=== PATIENT | male | born 1990 | race Caucasian/White ===

== ENCOUNTER 2019-02-24 16:37 | Emergency (ER) | payer MEDICARE, MEDICAID, SELFPAY ==
[2019-02-24 16:38] VITALS: BP 133/74; PULSE 74; RESP 18; TEMP 36.8; O2SAT 95; BMI 29.7
--- NOTE | 2019-02-24 17:01 | CT_ITS ---
STUDY: CT ABDOMEN AND PELVIS WITH CONTRAST REASON FOR EXAM: Male, 29 years old. Bulge at the umbilicus RADIATION DOSAGE (If Supplied By Facility): DLP = ( 1119.77 ) mGycm TECHNIQUE: Transaxial images were obtained from the dome of the diaphragm to the symphysis pubis without oral contrast. 100ML ml of Isovue 300 contrast was administered. Sagittal and coronal images were reconstructed. Individualized dose optimization techniques were used for this CT. COMPARISON: None. FINDINGS: The visualized lung bases are clear. The visualized portions of the heart and pericardium are within normal limits. There are no calcified gallstones present. The liver is within normal limits. There are no suspicious hepatic lesions. The spleen is normal in size. The pancreas is within normal limits. The adrenal glands are within normal limits. There are no obstructing renal stones. There is no hydronephrosis. There are no focal renal lesions. Normal visualized stomach. There is no bowel obstruction or inflammation. The appendix is normal. The aorta is normal in caliber. There is no abdominal or pelvic free air, free fluid, fluid collection or lymphadenopathy. There are no destructive osseous lesions. There is a small umbilical fat-containing hernia measuring approximately [address]/Abdomen/Pelvis W IV Cont ONLY IMPRESSION: No acute abdominal or pelvic pathology. Small fat-containing umbilical hernia measuring approximately 1 cm diameter. Electronically Signed: Aaron Tinajero, at 18:29 EDT Tel , Service support ,
--- NOTE | 2019-02-24 17:14 | ED.VISSUMM ---
- ER Visit Summary Date of Service: 02/24/19 Chief Complaint: Possible hernia History of Present Illness: The patient is a 29 M with a possible hernia. The patient was sitting watching TV when he noted a swelling to his umbilical area. Associated with some pain. No vomiting or other symptoms. He has a history of an inguinal hernia on the right that was repaired surgically 6 to 10 years ago, but no other abdominal surgeries. Physical Examination: Vital and vital signs unremarkable. Patient appears in no acute distress. Abdominal inspection is unremarkable except for some mild swelling localized to his umbilicus on the left side. There is some tenderness to the area and induration. No guarding or rebound. Skin appears unremarkable. Test Results: Labs and CT pending. Emergency Department Course and Treatment: This seems localized to the cutaneous tissue. I suspect it might be a cyst or abscess. I have lower suspicion for hernia. I am checking labs and imaging prior to any further procedures or care. CBC and BMP unremarkable. CT showed a 1 center meter fat-containing umbilical hernia. Based on his clinical signs and symptoms, I do not believe he has a strangulated or incarcerated hernia. When I palpated the area, I was unable to reduce it. I believe the patient is appropriate for outpatient follow-up. We did discuss risks of incarceration and strangulation. Patient will return if he has any issues, otherwise follow-up with Dr. Cornejo. Treatment Plan: As above Disposition: Discharge Impression: 1. Umbilical hernia This note was generated with [employer] dictation software. It may contain incorrect words, spelling, and punctuation that were not noted in review of the chart prior to signing ED Disposition - Plan for ED Patient: Referrals: NOT,DEFINED [NON-STAFF] -
[2019-02-24 17:32] LABS: Absolute Lymphocyte Count 2.51 X10^3/ul (0.83-4.51); Absolute Neutrophil Count 3.9 X10^3/uL (2.0-7.7); Basophil# 0.03 X10^3/uL; Basophil% 0.4 % (0-1); Eosinophil# 0.21 X10^3/uL; Hematocrit 46.7 % (40-54); Hemoglobin 16.3 g/dl (13.0-16.5); Lymphocyte # 2.51 X10^3/ul (4.0); Lymphocyte % 35.4 % (19-41); Mean Corp Hgb Conc 34.9 g/gl (32-36); Mean Corpuscular Hgb 31.2 pg (27.0-32.0); Mean Corpuscular Volume 89.5 fL (80-94); Mean Platelet Vol. 9.8 fl (6.2-12.0); Monocyte# 0.44 X10^3/uL; Monocyte% 6.2 % (0-10); Neutrophil # 3.88 X10^3/uL (2.7-7.7); Neutrophil % 54.6 % (47-70); Platelet Count 213 K/mm3 (150-450); RBC Distribution Width CV 12.9 % (11.6-14.6); RBC Distribution Width SD 41.5 fl (35.1-43.9); Red Blood Count 5.22 M/mm3 (4.6-6.2); White Blood Count 7.1 K/mm3 (4.4-11.0)
[2019-02-24 17:39] LABS: POSITIVE COUNT NO; POSITIVE DIFFERENTIAL NO; POSITIVE MORPHOLOGY NO
[2019-02-24 17:54] LABS: Anion Gap 7 (5-15); BUN 14 mg/dL (7-18); BUN/Creat Ratio 13.9 RATIO (10-20); Calcium,Total 8.8 mg/dL (8.5-10.1); Chloride 103 mmol/L (98-107); Creatinine, Serum 1.01 mg/dL (0.70-1.30); EST Glomerular Filtration Rate 92 mL/min (>60); Est Glom Filt Rate - Afr Amer 112 mL/min (>60); Estimated Creatinine Clearance 99.99 ml/min; Glucose 96 mg/dL (74-106); Potassium 3.7 mmol/L (3.5-5.1); Sodium Level 140 mmol/L (136-145)
--- NOTE | 2019-02-24 18:59 | ED.DEP ---
ED Disposition - Plan for ED Patient: Instructions: What Is a Hernia? Referrals: Mele Cornejo MD [STAFF PHYSICIAN] -
[2019-02-24] MEDS: Acetaminophen 500 MG Tablet 1000 MG PO (19:06)
[2019-02-24 19:15] VITALS: BP 136/78; PULSE 71; RESP 16; O2SAT 98
== END 2019-02-24 19:16 | disposition home or self-care (01) ==
PROVIDERS: Emergency Provider Emergency Medicine
DX: K42.9 Umbilical hernia without obstruction or gangrene (principal)
CPT/HCPCS: 74177; 80048; 85025; 99284; Q9967; A4216

== ENCOUNTER 2021-04-17 13:08 | Emergency (ER) | payer MEDICARE, MEDICAID, SELFPAY ==
[2021-04-17 13:09] VITALS: BP 141/86; PULSE 64; RESP 18; TEMP 36.6; O2SAT 98; BMI 32.8
--- NOTE | 2021-04-17 13:42 | EDS_ITS ---
HPI History of Present Illness Chief Complaint: Foreign Body Narrative Narrative: 31-year-old male presenting for evaluation of pain in side of his throat. He states that it feels like there is a splinter in his throat. He does not recall eating anything or having difficulty swallowing anything that would cause it to be irritated. He is able to tolerate his own secretions. He has no fever or chills. He does not feel as if his tonsils are swollen. He is not had fever, chills, shortness of breath. PFSH PFSH Home Medications loratadine [Claritin] 10 mg PO DAILY 02/24/19 [History Last Taken Unknown] amoxicillin-pot clavulanate [Augmentin] 1 tab PO BID #20 tab 04/17/21 [Rx Last Taken Unknown] Allergy/AdvReac Type Severity Reaction Status Date / Time No Known Allergies Allergy Verified 04/17/21 13:11 Social History Smoking Status: Never smoker ROS ROS ED Constitutional Constitutional ED: Denies chills or fever(s) ENT ENT ED: Reports other Details: Foreign body sensation esophagus ; Denies ear pain, rhinorrhea or sore throat Cardiovascular Cardiovascular: Denies chest pain or palpitations Respiratory/Chest Respiratory/Chest: Denies cough or dyspnea Gastrointestinal Gastrointestinal: Denies abdominal pain or nausea Genitourinary Genitourinary ED: Denies dysuria or hematuria Musculoskeletal Musculoskeletal: Denies arthralgias or myalgias Integumentary Denies abscess or rash Neurologic Neurologic: Denies headache(s) or paresthesias EXAM Physical Exam Const Vital Signs: 04/17/21 13:09 Temperature 98 F Temperature Source Oral Pulse Rate 64 Respiratory Rate 18 Blood Pressure 141/86 H Blood Pressure Mean 104 Pulse Ox 98 Oxygen Delivery Method Room Air Positive well nourished General Appearance ED: NAD HEENT Reports moist mucous membranes HEENT Narrative: Oropharynx is patent without stridor. There is no posterior oropharyngeal erythema. Patient tolerating secretions Negative for trauma Neck no lymphadenopathy and supple Resp normal respiratory effort and clear to auscultation bilaterally Neuro oriented x3 and CN's II-XII intact bilaterally Sensorium / Orientation: alert Psych mental status grossly normal Skin no rashes or lesions noted and no wounds MDM MDM MDM Narrative Medical decision making narrative: Patient presenting for evaluation of irritation in the right side of his throat. On my exam I am not able to see down as far but I do not palpate any abnormalities in the neck. I do not appreciate any lymphadenopathy, crepitance, stridor. There does appear to be an y swelling. Patient is tolerating his own secretions and talking normally. I did offer to check the patient for strep although he does not feel that he wants this. Given that he does not have any foreign body obstruction I do not believe he needs an emergent endoscopy. He was to be covered on antibiotics until he can get follow-up. Patient was given Augmentin and he was given follow-up with Dr. Ramey on an outpatient basis. He is given return precautions. Impression: 1. Globus hystericus Discharge Plan Triage Chief Complaint: Foreign Body ED Provider: Jignesh Mcgowan Dx/Rx/DC Orders Instructions: ED Swallowed Foreign Body (Adult) Prescriptions: New amoxicillin-pot clavulanate [Augmentin] 875-125 mg tablet 1 tab PO BID Qty: 20 RF: 0 No Action loratadine [Allergy Relief (loratadine)] 10 MG tablet 10 mg PO DAILY RF: 0 Primary Care Provider: Whitley Lozano Referrals: Whitley Lozano DO [Primary Care Provider] - Mary Ramey MD [STAFF PHYSICIAN] - As Needed Disposition Disposition: Home, Self Care
[2021-04-17] MEDS: Amox/Clavulanate 875 MG Tablet PO (13:45)
== END 2021-04-17 13:53 | disposition home or self-care (01) ==
PROVIDERS: Emergency Provider Student in an Organized Health Care Education/Training Program; PCP Family Medicine
DX: F45.8 Other somatoform disorders (principal)
CPT/HCPCS: 99283

== ENCOUNTER 2023-09-14 09:08 | Emergency (ER) | payer MEDICAID, SELFPAY ==
[2023-09-14 09:10] VITALS: BP 139/67; PULSE 89; RESP 16; TEMP 36.4; O2SAT 97
--- NOTE | 2023-09-14 09:45 | EX.ED.DYSGE1 ---
HPI History of Present Illness Chief Complaint: Nausea/Vomiting Detail of Chief Complaint: Vomiting Informant: patient Narrative Narrative: Patient sounds emergency department complaint of vomiting that started last evening. Patient denies sick contacts. Patient states that he threw up 112 times throughout the night. He denies diarrhea. He has subjective fever at home. He denies cough. He denies abdominal pain. Does have some mild dysuria but thinks is just because he is dehydrated. Patient complains of headache and body aches. PFSH PFSH Home Medications loratadine 10 mg tablet (Allergy Relief (loratadine)) 10 mg PO DAILY 02/24/19 [History Last Taken Unknown] amoxicillin 875 mg-potassium clavulanate 125 mg tablet (Augmentin) 1 tab PO BID #20 tabs 04/17/21 [Rx Last Taken Unknown] ondansetron 4 mg disintegrating tablet 4 mg PO Q8H PRN PRN Nausea #10 tabs 09/14/23 [Rx Last Taken Unknown] Allergy/AdvReac Type Severity Reaction Status Date / Time No Known Allergies Allergy Verified 09/14/23 09:21 Social History Smoking Status: Never smoker ROS ROS ED Review of Systems ROS Unobtainable: other Constitutional Constitutional ED: Reports fever(s) and lethargy; Denies chills, sweats or weight loss Eyes Eyes: Denies blurry vision, change in vision or diplopia ENT ENT ED: Denies rhinorrhea or sore throat Cardiovascular Cardiovascular: Reports chest pain and racing heartbeat; Denies orthopnea Respiratory/Chest Respiratory/Chest: Reports dyspnea and dyspnea on exertion; Denies cough, orthopnea or sputum Gastrointestinal Gastrointestinal: Reports nausea and vomiting; Denies abdominal pain or diarrhea Genitourinary Genitourinary ED: Denies dysuria, hematuria or urinary frequency Musculoskeletal Musculoskeletal: Reports myalgias; Denies arthralgias, back pain or neck pain Integumentary Denies abscess, Abrasions or rash Neurologic Neurologic: Reports headache(s); Denies weakness Psychiatric Psychiatric: Denies anxiety, depression or suicidal thoughts Endocrine Endocrinology: Denies polydipsia, polyphagia or polyuria Hematologic/Lymphatic Hematologic/Lymphatic: Denies easy bleeding, easy bruising or lymphadenopathy Allergic/Immunologic Allergic/Immunologic ED: Denies mouth swelling, tongue swelling or urticaria EXAM Physical Exam Const Vital Signs: 09/14/23 09:10 Temperature 97.6 F L Temperature Source Temporal Pulse Rate 89 Respiratory Rate 16 Blood Pressure 139/67 H Blood Pressure Mean 91 Pulse Ox 97 Oxygen Delivery Method Room Air Positive well nourished and well developed General Appearance ED: well developed and NAD HEENT Reports TM's clear and moist mucous membranes normocephalic and atraumatic; Negative for trauma or tenderness Tympanic Membrane ED: Yes TM's clear Eyes PERRL and EOMs intact bilaterally General Eye ED: Negative for pale conjunctiva or scleral icterus Neck no lymphadenopathy, supple and no JVD General: Negative for tenderness Chest Wall inspection of chest normal and palpation of chest normal Chest: Negative for tenderness Resp normal respiratory effort and clear to auscultation bilaterally Effort and Inspection: Negative for respiratory distress or pain with movement Auscultation: Negative for rhonchi, wheezes or diminished lung sounds Cardio regular rate, regular rhythm, S1 normal heart sound, S2 normal heart sound and no murmurs Peripheral Pulses: pulses 2+ throughout GI normal to inspection, nondistended, normoactive bowel sounds, soft to palpation, non-distended and no masses GI Narrative: Mild diffuse tenderness. There is no rebound, rigidity, or pineal signs. No mass palpated. Back/Spine no CVA tenderness and no thoracic nor lumbar tenderness Extremity normal to inspection General Extremety ED: Negative for edema General Extremity: Negative for edema Neuro oriented x3, CN's II-XII intact bilaterally, no sensory deficits noted and gait normal Sensorium / Orientation: awake, alert, oriented to person, oriented to place and oriented to time Motor Exam: strength 5/5 throughout and strength abnormal Psych mental status grossly normal Skin no rashes or lesions noted and no wounds MDM MDM MDM Narrative Medical decision making narrative: Also willPatient with nausea and vomiting as well as headache and body aches. Viral illness. He is not really having a lot of respiratory symptoms but states when he had COVID last time he had more GI symptoms. IV line established. Patient was medicated with Zofran and given a liter normal same fluid bolus. CBC with differential showed white count 7.3 with hemoglobin 15 and platelet counts of 164. Chemistries unremarkable. LFTs normal. Patient will be given Toradol 30 mg IV. COVID testing came back positive. On repeat exam at 1130 he has no abdominal pain. He is feeling improved. Recommended supportive care. Advised to return if increasing shortness of breath, persistent vomiting, dehydration, or condition worsening way. He is advised to quarantine for 5 days. Lab Data Attestation: I reviewed the patient's lab results. Labs: Laboratory Results - last 24 hr 09/14/23 09:55 WBC 7.3 RBC 5.01 Hgb 15.2 Hct 44.5 MCV 88.8 MCH 30.3 MCHC 34.2 RDW Std Deviation 41.3 RDW Coeff of [place] 12.6 Plt Count 164 MPV 10.3 Immature Gran % (Auto) 0.500 Neut % (Auto) 81.5 H Lymph % (Auto) 5.9 L [place] % (Auto) 11.6 H Eos % (Auto) 0.1 Baso % (Auto) 0.4 Absolute Neuts (auto) 6.0 Absolute Lymphs (auto) 0.43 L Nucleated RBC % 0 Differential Comment SCANNED Sodium 136 Potassium 3.7 Chloride 106 Carbon Dioxide 24.0 Anion Gap 6 BUN 14 Creatinine 1.26 Est GFR (MDRD) Af Amer 84 Est GFR (MDRD) Non-Af 69 BUN/Creatinine Ratio 11.1 Glucose 112 H Calcium 8.9 Total Bilirubin 0.50 AST 13 L ALT 23 Alkaline Phosphatase 38 L Total Protein 7.2 Albumin 4.2 Globulin 3.0 Albumin/Globulin Ratio 1.4 Discharge Plan Triage Chief Complaint: Nausea/Vomiting ED Provider: Teddy Patel Dx/Rx/DC Orders Clinical Impression: COVID-19 Instructions: Caring for Someone Who Has COVID-19, ED Vomiting (Adult) Prescriptions: New ondansetron [ondansetron] 4 mg tablet,disintegrating 4 mg PO Q8H PRN PRN (Reason: Nausea) Qty: 10 0RF No Action loratadine [Allergy Relief (loratadine)] 10 MG tablet 10 mg PO DAILY amoxicillin-pot clavulanate [Augmentin] 875-125 mg tablet 1 tab PO BID Qty: 20 0RF Primary Care Provider: Evonne Mondragon SECURITIES RESEARCH ANALYST Referrals: Whitley Lozano DO [Non-Staff] - 3-5 Days Disposition Disposition: Home, Self Care
[2023-09-14] MEDS: Ondansetron 4 MG/2 ML Vial IV (09:55)
[2023-09-14] MEDS: 0.9% Normal Saline (1000mL) 1,000 ML 1000 ML IV (09:55)
[2023-09-14 10:07] LABS: Absolute Lymphocyte Count 0.43 X10^3/uL (0.83-4.51); Basophil# 0.03 X10^3/uL; Basophil% 0.4 % (0-1); Eosinophil# 0.01 X10^3/uL; Eosinophils% 0.1 % (0-5); Hematocrit 44.5 % (40-54); Hemoglobin 15.2 g/dL (13.0-16.5); Lymphocyte # 0.43 X10^3/ul (0.83-4.51); Lymphocyte % 5.9 % (19-41); Mean Corp Hgb Conc 34.2 g/dL (32-36); Mean Corpuscular Hgb 30.3 pg (27.0-32.0); Mean Corpuscular Volume 88.8 fL (80-94); Mean Platelet Vol. 10.3 fl (6.2-12.0); Monocyte# 0.85 X10^3/uL; Monocyte% 11.6 % (0-10); NRBC Flagged by Analyzer 0 % (0-5); Neutrophil # 5.98 X10^3/uL (2.7-7.7); Neutrophil % 81.5 % (47-70); POSITIVE DIFFERENTIAL YES; Platelet Count 164 K/mm3 (150-450); RBC Distribution Width CV 12.6 % (11.6-14.6); RBC Distribution Width SD 41.3 fl (35.1-43.9); Red Blood Count 5.01 M/mm3 (4.6-6.2); White Blood Count 7.3 K/mm3 (4.4-11.0)
[2023-09-14 10:09] LABS: Differential Indicated SCAN CRITERIA MET
[2023-09-14 10:22] LABS: ALB/GLOB Ratio 1.4 RATIO (0.9-2.4); AST(SGOT) 13 U/L (15-37); Alanine Aminotransfer ALT/SGPT 23 U/L (16-61); Albumin, Serum 4.2 g/dL (3.2-5.0); Alkaline Phosphatase 38 U/L (45-117); Anion Gap 6 (5-15); BUN 14 mg/dL (7-18); BUN/Creat Ratio 11.1 RATIO (10-20); Calcium,Total 8.9 mg/dL (8.5-10.1); Chloride 106 mmol/L (98-107); Creatinine, Serum 1.26 mg/dL (0.70-1.30); EST Glomerular Filtration Rate 69 mL/min (>60); Est Glom Filt Rate - Afr Amer 84 mL/min (>60); Glucose 112 mg/dL (74-106); Potassium 3.7 mmol/L (3.5-5.1); Protein, Total 7.2 g/dL (6.4-8.2); Sodium Level 136 mmol/L (136-145)
[2023-09-14 10:40] LABS: Differential Comment SCANNED
[2023-09-14 11:19] LABS: Bacteria 0 SEEN /hpf (None Seen); Mucous, Urine 0 SEEN /hpf (<or=2+); Red Blood Cells-Urine 0 SEEN /hpf (0-5); Squamous Epithelial Cells - UA 0 SEEN /hpf (0-5); White Blood Cells 0 SEEN /hpf (0-5)
[2023-09-14 11:38] LABS: Color, Urine Yellow (Yellow); Glucose, Dipstick Normal (Normal); Ketone-Dipstick Negative (Negative); Leukocyte Esterase-Dipstick Negative /ul (Negative); Nitrite-Dipstick Negative (Negative); Occult Blood-Urine Negative /ul (Negative); Protein-Dipstick 15 mg/dl (Negative); Specific Gravity, Urine 1.005 (1.002-1.030); Urine Bilirubin Dipstick Negative (Negative); Urine Clarity Clear (Clear); Urine Urobilinogen Normal (Normal); Urine pH 6.5 (5.0 - 8.0)
[2023-09-14] MEDS: Ketorolac 30 MG/ML Syringe IV (11:54)
[2023-09-14 12:00] VITALS: BP 134/87; PULSE 100; RESP 16; O2SAT 97; BMI 36.7
== END 2023-09-14 12:08 | disposition home or self-care (01) ==
PROVIDERS: Emergency Provider Emergency Medicine; PCP Nurse Practitioner Family; Referring Provider Emergency Medicine; Visit Provider Emergency Medicine
DX: U07.1 COVID-19 (principal)
CPT/HCPCS: 80053; 81001; 85025; 87428; 96361; 96374; 96375; 99283; J2405